=== PATIENT | female | born 1955 | race Caucasian/White ===

== ENCOUNTER 2023-02-10 12:31 | Emergency (ER) | payer MEDICAID ==
[~2023-02-10] VITALS: Ht 162.6 cm; Wt 65.8 kg
[2023-02-10 12:53] VITALS: BP_SYST 139; PULSE 91; RESP 20; TEMP 97; O2SAT 98
[2023-02-10] MEDS ORDERED: DIATR MEGLU/DIATRIZ SOD 30 ML SOLUTION PO ONE (14:03)
[2023-02-10 21:09] VITALS: BP_SYST 127; PULSE 95; RESP 16; TEMP 95.4; O2SAT 100
== END 2023-02-10 20:10 | disposition home or self-care (01) ==
LOC: SED 12:31
DX: K94.23 Gastrostomy malfunction (principal); Z79.899 Other long term (current) drug therapy
CPT/HCPCS: 99284; 43762; 74240; 74018; Q9967; Q9964; 99285